=== PATIENT | female | born 1965 | race African-American/Black ===

== ENCOUNTER 2024-10-05 18:51 | Emergency (ER) | payer BC, MEDICAID ==
[~2024-10-05] VITALS: Ht 170.2 cm; Wt 70.0 kg
[2024-10-05 19:00] VITALS: O2SAT 99
[2024-10-05] MEDS: LISINOPRIL 10MG TABLET PO ONE (19:45)
[2024-10-05 19:55] LABS: BASOPHILS % 0.7 % (0.0-2.0); EOSINOPHILS % 1.8 % (0.0-5.0); HEMATOCRIT. 38.9 % (36.0-48.0); LYMPHOCYTES % 36.6 % (20.0-50.0); MEAN CORPUSCULAR HEMOGLOBIN 30.1 pg (28.0-32.0); MEAN CORPUSCULAR HGB CONC 33.5 g/dL (31.0-37.0); MEAN CORPUSCULAR VOLUME 89.8 fL (81.0-99.0); MEAN PLATELET VOLUME 8.9 fl (7.4-10.4); MONOCYTES % 8.3 % (2.0-8.0); NEUTROPHILS % 52.6 % (40.0-76.0); PLATELET 261 x1000/uL (130-400); RED BLOOD CELL COUNT 4.34 mill/uL (4.2-5.4); RED CELL DISTRIBUTION WIDTH 13.6 % (11.6-14.6); WHITE BLOOD COUNT 7.8 x1000/uL (4.5-11.0)
[2024-10-05 20:06] LABS: CHLORIDE 105 mEq/L (98-107); POTASSIUM 3.7 mEq/L (3.5-5.1); SODIUM 137 mEq/L (136-145)
[2024-10-05 20:07] LABS: CALCIUM 9.4 mg/dL (8.7-10.4); CARBON DIOXIDE 25 mEq/L (21-32)
[2024-10-05 20:12] LABS: CREATININE 0.8 mg/dL (0.6-1.0); GLUCOSE 373 mg/dL (70-105); UREA NITROGEN BLOOD 12 mg/dL (9-23)
[2024-10-05 20:14] LABS: ALANINE AMINOTRANSFERASE 16 IU/L (10-49); ALBUMIN 4.1 g/dL (3.2-4.8); ASPARTATE AMINOTRANSFERASE 17 IU/L (<34); BILIRUBIN DIRECT 0.1 mg/dL (<=3.0); BILIRUBIN TOTAL 0.4 mg/dL (0.1-1.0); PROTEIN TOTAL 7.5 g/dL (6.0-8.3)
[2024-10-05 20:22] LABS: TROPONIN I HIGH SENSITIVITY < 4 ng/L (3.0-34)
[2024-10-05 20:32] VITALS: BP 145/100; PULSE 72; RESP 16; TEMP 36.66960; O2SAT 100
[2024-10-05 20:32] LABS: CLARITY URINE CLEAR (CLEAR); COLOR URINE YELLOW (YELLOW); GLUCOSE URINE 3+ (NEGATIVE); KETONES URINE NEGATIVE (NEGATIVE); LEUKOCYTE ESTERASE URINE 1+ (NEGATIVE); NITRITE URINE NEGATIVE (NEGATIVE); OCCULT BLOOD URINE NEGATIVE (NEGATIVE); PH URINE 5.5 (4.5-8.0); PROTEIN URINE NEGATIVE (NEGATIVE); SPECIFIC GRAVITY URINE 1.051 (1.005-1.030); UROBILINOGEN URINE 0.2 E.U./dL (0.2-1.0)
[2024-10-05 20:35] LABS: BETA HYDROXYBUTYRATE 0.2 mMol/L (0.0-0.3)
[2024-10-05 20:48] LABS: SQUAMOUS EPITHELIAL CELL URINE 1+ /lpf (RARE/1+)
[2024-10-05 20:49] LABS: BACTERIA URINE NONE SEEN; RBC URINE 0-2 /hpf (0-2); YEAST URINE NONE SEEN
[2024-10-05] MEDS ORDERED: LISI10TA26 MT (20:57)
[2024-10-05] MEDS ORDERED: INSU100I28 SQ (20:57)
== END 2024-10-05 20:36 | disposition home or self-care (01) ==
LOC: ER 18:51
DX: R53.1 Weakness (principal); E11.65 Type 2 diabetes mellitus with hyperglycemia; I10 Essential (primary) hypertension; Z76.0 Encounter for issue of repeat prescription; Z79.4 Long term (current) use of insulin; Z98.890 Other specified postprocedural states
CPT/HCPCS: 36415; 80048; 80076; 81003; 82010; 82962; 84484; 85025; 93005; 99284

== ENCOUNTER 2024-10-14 23:07 | Emergency (ER) | payer BC ==
[~2024-10-14] VITALS: Ht 170.2 cm; Wt 69.0 kg
[~2024-10-14 23:07] MED LIST: INSU100I28 SQ; LISI10TA26 MT
[2024-10-14 23:12] VITALS: O2SAT 99
[2024-10-14 23:35] LABS: CLARITY URINE CLEAR (CLEAR); COLOR URINE YELLOW (YELLOW); GLUCOSE URINE 3+ (NEGATIVE); KETONES URINE NEGATIVE (NEGATIVE); LEUKOCYTE ESTERASE URINE NEGATIVE (NEGATIVE); NITRITE URINE NEGATIVE (NEGATIVE); OCCULT BLOOD URINE NEGATIVE (NEGATIVE); PROTEIN URINE NEGATIVE (NEGATIVE); SPECIFIC GRAVITY URINE 1.045 (1.005-1.030); UROBILINOGEN URINE 0.2 E.U./dL (0.2-1.0)
[2024-10-14 23:36] LABS: CHLORIDE 103 mEq/L (98-107); SODIUM 134 mEq/L (136-145)
[2024-10-14 23:37] LABS: CARBON DIOXIDE 27 mEq/L (21-32)
[2024-10-14 23:38] LABS: CALCIUM 9.2 mg/dL (8.7-10.4)
[2024-10-14 23:39] LABS: BASOPHILS % 0.5 % (0.0-2.0); EOSINOPHILS % 2.6 % (0.0-5.0); HEMATOCRIT. 38.2 % (36.0-48.0); LYMPHOCYTES % 33.3 % (20.0-50.0); MEAN CORPUSCULAR HEMOGLOBIN 30.8 pg (28.0-32.0); MEAN CORPUSCULAR VOLUME 90.7 fL (81.0-99.0); MEAN PLATELET VOLUME 8.3 fl (7.4-10.4); MONOCYTES % 9.1 % (2.0-8.0); NEUTROPHILS % 54.5 % (40.0-76.0); PLATELET 229 x1000/uL (130-400); RED BLOOD CELL COUNT 4.21 mill/uL (4.2-5.4); RED CELL DISTRIBUTION WIDTH 13.4 % (11.6-14.6); WHITE BLOOD COUNT 6.5 x1000/uL (4.5-11.0)
[2024-10-14 23:42] LABS: UREA NITROGEN BLOOD 11 mg/dL (9-23)
[2024-10-14 23:57] LABS: GLUCOSE 472 mg/dL (70-105)
[2024-10-15 00:06] LABS: BACTERIA URINE NONE SEEN; RBC URINE 0-2 /hpf (0-2); SQUAMOUS EPITHELIAL CELL URINE NONE SEEN /lpf (RARE/1+); WBC URINE 0-2 /hpf (0-2)
[2024-10-15 01:00] VITALS: BP 116/83; PULSE 99; RESP 16
[2024-10-15] MEDS: INSULIN REGULAR (HUMULIN R) 1000UNITS/10ML VIAL SUBCUT ONE (01:00)
[2024-10-15] MEDS: ACETAMINOPHEN 325MG TABLET PO ONE (01:00)
[2024-10-15] MEDS: IBUPROFEN 600MG TABLET PO ONE (01:00)
== END 2024-10-15 01:57 | disposition home or self-care (01) ==
LOC: ER 23:07
DX: E11.65 Type 2 diabetes mellitus with hyperglycemia (principal); R53.1 Weakness; R42 Dizziness and giddiness; R35.0 Frequency of micturition; I10 Essential (primary) hypertension; Z79.4 Long term (current) use of insulin
CPT/HCPCS: 99284; 80048; 81003; 82962 ×2; 85025; 36415; 93005; 96372; J1815

== ENCOUNTER 2024-10-22 04:51 | Emergency (ER) | payer BC ==
[~2024-10-22] VITALS: Ht 170.2 cm; Wt 72.0 kg
[2024-10-22] MEDS: FLUTICASONE PROPIONATE 50MCG/SPRAY BOTTLE BOTHNSTRLS STA (06:11)
[2024-10-22] MEDS: ACETAMINOPHEN 325MG TABLET PO ONE (06:14)
[2024-10-22 06:15] LABS: BASOPHILS % 0.4 % (0.0-2.0); EOSINOPHILS % 0.4 % (0.0-5.0); HEMATOCRIT. 39.1 % (36.0-48.0); HEMOGLOBIN. 13.1 g/dL (12.0-16.0); LYMPHOCYTES % 23.2 % (20.0-50.0); MEAN CORPUSCULAR HEMOGLOBIN 30.1 pg (28.0-32.0); MEAN CORPUSCULAR HGB CONC 33.3 g/dL (31.0-37.0); MEAN CORPUSCULAR VOLUME 90.4 fL (81.0-99.0); MEAN PLATELET VOLUME 8.2 fl (7.4-10.4); PLATELET 197 x1000/uL (130-400); RED BLOOD CELL COUNT 4.33 mill/uL (4.2-5.4); RED CELL DISTRIBUTION WIDTH 13.7 % (11.6-14.6); WHITE BLOOD COUNT 5.9 x1000/uL (4.5-11.0)
[2024-10-22 06:20] LABS: CHLORIDE 100 mEq/L (98-107); POTASSIUM 3.6 mEq/L (3.5-5.1); SODIUM 135 mEq/L (136-145)
[2024-10-22 06:21] LABS: CARBON DIOXIDE 29 mEq/L (21-32)
[2024-10-22 06:26] LABS: CREATININE 0.6 mg/dL (0.6-1.0); GLUCOSE 270 mg/dL (70-105); UREA NITROGEN BLOOD 9 mg/dL (9-23)
[2024-10-22] MEDS: ALBUTEROL (0.083%) 2.5MG/3ML NEB HHN STA (06:29)
[2024-10-22 06:30] VITALS: PULSE 96; RESP 20; O2SAT 98
[2024-10-22] MEDS ORDERED: TOPUD PO (06:40)
[2024-10-22] MEDS ORDERED: ALBU18HF2 IH (06:40)
[2024-10-22 06:47] LABS: TROPONIN I HIGH SENSITIVITY < 4 ng/L (3.0-34)
[2024-10-22 07:03] VITALS: BP 118/67; PULSE 100; RESP 20; TEMP 37.00296; O2SAT 100
== END 2024-10-22 07:05 | disposition home or self-care (01) ==
LOC: ER 04:51
DX: B34.9 Viral infection, unspecified (principal); E11.9 Type 2 diabetes mellitus without complications; I10 Essential (primary) hypertension; J45.909 Unspecified asthma, uncomplicated; F19.90 Other psychoactive substance use, unspecified, uncomplicated; Z98.890 Other specified postprocedural states
CPT/HCPCS: 80048; 85025; 84484; 87804 ×2; 36415; 71045; 94640; 93005; 99285; Z7610 ×2